=== PATIENT | female | born 1955 | race Two or more races ===

== ENCOUNTER 2024-11-15 22:05 | Emergency (ER) | payer BC ==
[~2024-11-15] VITALS: Ht 172.7 cm; Wt 91.6 kg
[~2024-11-15 22:05] MED LIST: CEPH250C PO
[2024-11-15 22:12] VITALS: BP 151/68; PULSE 75; RESP 22; O2SAT 99
[2024-11-15] MEDS ORDERED: SODIUM CHLORIDE 0.9% 1,000 ML IV ONE (23:00)
[2024-11-15] MEDS ORDERED: ONDANSETRON HCL 4 MG/2 ML VIAL IV ONE (23:00)
[2024-11-15] MEDS ORDERED: MORPHINE SULFATE 4 MG/ML SYR/VIAL IV ONE (23:00)
== END 2024-11-16 01:20 | disposition left against medical advice (07) ==
LOC: ER 22:05
DX: R10.11 Right upper quadrant pain (principal); R11.2 Nausea with vomiting, unspecified; Z53.21 Procedure and treatment not carried out due to patient leaving prior to being seen by health care provider